=== PATIENT | male | born 1950 | race Caucasian/White ===

== ENCOUNTER 2022-05-09 06:59 | Day surgery (SDC) | payer OTHER ==
[2022-05-06 13:05] LABS: Absolute Lymphocytes (CBC) 1.8 K/uL (0.7-4.9); Lymphocytes % 32.9 % (15.3-44.8); MCV 89.4 fL (80-100); MPV 9.4 fL (7.6-11.3); RBC Red Blood Cell Count 5.15 M/uL (4.33-5.43)
--- NOTE | 2022-05-06 13:07 | RAD REPORT ---
EXAM DESCRIPTION: RAD - Chest Pa And Lat (2 Views) - 05/06/2022 12:41 pm CLINICAL HISTORY: Pre op pending hernia surgery COMPARISON: Two view chest 02/02/2014 TECHNIQUE: Frontal and lateral views of the chest were obtained. FINDINGS: The lungs are clear of an acute process. Minimal scarring changes are present in the left base. Hilar regions are stable over the long interval. Heart size is normal and central vasculature is within normal limits. No pleural effusion or pneu mothorax seen. No acute bony finding noted. No aortic abnormality. IMPRESSION: No acute cardiopulmonary process. No significant change from comparison study.
[2022-05-06 13:15] LABS: Potassium 4.1 mmol/L (3.5-5.1)
--- NOTE | 2022-05-07 19:03 | EKG ---
Test Date: 2022-05-06 Test Time: 12:18:21 Forming Fixer: LAYLA MEASUREMENT RESULTS: Intervals: Rate: 65 NE: 150 QRSD: 82 QT: 412 QTc: 428 [place]: P: 5 NE: 150 QRS: -11 T: 8 INTERPRETIVE STATEMENTS: Normal sinus rhythm Normal ECG Compared to ECG 02/02/2014 12:31:31 No significant changes Electronically Signed On 05-07-22 19:00:38 [employer] by Mehdi Han
[2022-05-09] MEDS ORDERED: NA CHLORIDE 0.9% 1,000 ML ONE (07:14)
[2022-05-09] MEDS ORDERED: CEFAZOLIN SODIUM 1 GM/VIAL ONE (07:14)
[2022-05-09] MEDS ORDERED: BUPIVACAINE 0.5% PF 10 ML VIAL ONE (07:57)
[2022-05-09] MEDS ORDERED: MIDAZOLAM HCL 2 MG/2 ML INJ ONE (08:24)
[2022-05-09] MEDS ORDERED: propofoL 200 MG/20 ML VIAL IV ONE (08:24)
[2022-05-09] MEDS ORDERED: FENTANYL CITR 100 MCG/2 ML ONE (08:25)
[2022-05-09] MEDS ORDERED: LIDOCAINE 2% MPF 5 ML VIAL ONE (08:25)
[2022-05-09] MEDS ORDERED: ONDANSETRON 4 MG/2 ML VIAL ONE (08:26)
[2022-05-09] MEDS ORDERED: ROCURONIUM 50 MG/5 ML VIAL IV ONE (08:27)
[2022-05-09] MEDS ORDERED: EPHEDRINE SULF 50 MG/ML VIAL ONE (08:45)
[2022-05-09] MEDS ORDERED: GLYCOPYRROLATE 0.2 MG/ML SYR ONE (09:04)
[2022-05-09] MEDS ORDERED: NEOSTIGMINE 1 MG/ML -10 ML VIAL ONE (09:18)
--- NOTE | 2022-05-09 09:48 | P.OP ---
Date of Service: 05/09/22 Preop diagnosis: Umbilical hernia Postop diagnosis: Same Procedure performed: Laparoscopic repair umbilical hernia Surgeon: Dima Mao MD Cutting Machine Operator: Angelica CAMPOS Estimated blood loss: Minimal Specimen: Hernia sac and contents Findings: As above Anesthesia: General Complications: None Drains: None Fluids and blood products: Nonapplicable Disposition: Recovery room Operative note: Patient brought to the OR and placed in the supine position. General anesthesia begun. Patient prepped and draped in the usual sterile fashion. Marcaine 0.5% infiltrated locally for postop pain control. Then a 1 cm left upper quadrant incision made. Subcutaneous tissue divided and fascia identified and divided. #1 Vicryl stay suture placed into the fascia. Posterior sheath identified with sharp and blunt dissection and peritoneal cavity entered under direct vision. 12 mm trocar placed into the peritoneal cavity under direct vision. 5 mm trocar placed in the left lower quadrant. Laparoscopy revealed umbilical hernia with fat incarcerated in it but, it was easily reducible. The fat appeared a little inflamed. This was excised and sent to pathology. Then 3 cm supraumbilical incision was made. Subcutaneous tissue divided. Bleeding controlled with cautery. Hernia sac and contents identified and excised. Good fascial edges obtained. The defect was approximately 2 cm in diameter. Ventralex medium sized mesh was placed into the peritoneal cavity. The position of the mesh was confirmed with laparoscopy. Then a [id number] #1 PDS suture was used to close the defect and secured the mesh. Subcutaneous wounds irrigated bleeding controlled cautery. Then laparoscopy confirmed good placement of the mesh. Then all trochars removed under direct vision. Stay sutures tied to each other to reapproximate the fascial defect. Subcutaneous wounds irrigated bleeding controlled cautery and then 3-0 chromic used to approximate subcutaneous tissue and close skin. Sterile dressing applied. Patient awakened and taken to recovery room in good general condition. CC: Dr. Alarcon's office
[2022-05-09] MEDS: HYDROMORPHONE HCL 1 MG/ML INJ ONE ×2 (09:52→10:02)
[2022-05-09] MEDS ORDERED: HYDROCODONE/APAP 7.5/325 MG TAB PO PRN (09:54)
[2022-05-09 10:06] VITALS: O2SAT 97
[2022-05-09] MEDS ORDERED: HYDROCODONE/APAP 7.5/325 MG TAB ONE (10:33)
[2022-05-09 12:01] VITALS: BP 136/82; TEMP 97.8
== END 2022-05-09 11:06 | disposition home or self-care (01) ==
LOC: OR 06:59
PROVIDERS: ATTEND Surgery
PROC: 0WQF4ZZ Repair Abdominal Wall, Percutaneous Endoscopic Approach (ICD-10-PCS; principal; 2022-05-09 08:15)
DX: K42.9 Umbilical hernia without obstruction or gangrene (principal)
CPT/HCPCS: 93005; 85025; 80048; 36415; 82947 ×2; 88302; 71046; 49652; J2704; J2710; J2001; J2250; J3010; J1170; J7030; J2405; J0690